=== PATIENT | female | born 1985 | race Caucasian/White ===

== ENCOUNTER 2021-11-25 07:35 | Inpatient (IN) ==
[2021-11-25] MEDS ORDERED: OXYTOCIN 30 UNITS/500 ML BAG IV PRN ×3 (07:45→13:16)
[2021-11-25 08:27] LABS: Hematocrit (blood only) 36.4 % (37-47); Hemoglobin 12.4 g/dL (12.0-16.0); Mean Corpuscular Hemoglobin 30.8 pg (25-34); Mean Corpuscular Hgb Conc 34.1 g/dL (32-36); Mean Corpuscular Volume 90.3 fL (80-100); Platelet Count 244 K/uL (130-400); RDW Coefficient of Variation 12.8 % (11.5-14.5); RDW Standard Deviation 42.4 fL (36.4-46.3); Red Blood Count 4.03 M/uL (4.2-5.4)
[2021-11-25] MEDS: LACTATED RINGER'S 1,000 ML IV PRN ×2 (09:05→10:49)
[2021-11-25] MEDS ORDERED: fentaNYL citrate 100 MCG/2 ML VIAL ONE (09:24)
[2021-11-25] MEDS ORDERED: ePHEDrine sulfate 50 MG/ML AMP ONE (09:24)
[2021-11-25] MEDS ORDERED: BUPIVACAINE 0.25% 30 ML VIAL ONE (09:24)
[2021-11-25] MEDS ORDERED: SODIUM CHLORIDE 0.9% INJ 10 ML VIAL ONE (09:24)
[2021-11-25] MEDS ORDERED: fentaNYL 2MCG/ML ROPIVACAINE 1.25MG/ML 100 ML BAG EPI ONE (09:25)
--- NOTE | 2021-11-25 09:51 | History & Physical Report ---
Date of Service November 25, 2021 Assessment & Plan (1) Post term over 40 weeks: Plan: 36 y/o G1 at 40 6/7 wga presents for IOL VSS Fetus cat 1 Labor - will start pit GBS neg epidural prn Admission and Anticipated Discharge Date Admission Date: November 25, 2021 History of Present Illness Chief Complaint: IOL Primary Care Provider: NO PCP 36 y/o G1 at 40 6/7 wga presents for IOL. +FM and ctx, denies LOF or VB. Had ludwig bulb placed last evening, fell out around 9pm. 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 Hx: G1 q29d cycles 05/2020 neg cyto, denies hx abnl Denies hx STIs Allergies Allergy/AdvReac Type Severity Reaction Status Date / Time No Known Allergies Allergy Mild Verified 11/25/21 07:57 Home Medications Medication Instructions Recorded Confirmed Type cetirizine 5 mg tablet 5 mg PO DAILY 11/24/21 11/25/21 History vit no.95-ferrous 1 tab PO DAILY 11/24/21 11/25/21 History fumarate 28 mg-folic acid 800 mcg tablet () acetaminophen 325 mg tablet 1,000 mg PO ONCE 11/25/21 11/25/21 History (Tylenol) Patient History Medical History History of varicella as a child Surgical History H/O wisdom tooth extraction Status post breast reduction Family History Mother Asthma Sister Asthma Father Dyslipidemia Denies family history of Ovarian cancer Breast cancer Colorectal cancer Social History Smoking Status: Never smoker Second Hand Exposure: No; Hx Alcohol Use: No Hx Substance Use: No Preferred Language: Brazilian Communication Ability: Effective Visual Impairment: No Limitations Hearing Ability: Normal 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 Required: No Beliefs That Will Affect Care: None marital status: marital status details: Eric Cristobal [phone] Current Living Situation: Spouse Current Living Situation Comment: Lives with spouse and dog current occupational status: employed 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 Other Information That Helps Us Care for You: No Feels Safe at Home: Yes Safety Concerns: Feels Safe At This Time Physical Exam Genitourinary: OB Exam Abdomen: + vertex and + estimated weight (7-8) Manual OB Exam: + cervical dilation (3-4), + cervical effacement 70% and + station -2 OB Exam Monitor Tracing: + external FHT monitor used (irreg), + external uterine monitor used and + category I (140/mod/+accel/-decel) Results & Data ([facility]) Vital Signs (Past 12 Hours) Vital Signs Temp Pulse Resp BP 11/25/21 08:00 98.2 F 58 L 18 120/82 11/25/21 07:52 58 L 120/82 11/25/21 07:51 98.2 F 18 Laboratory Results OB Labs: Blood Type O Positive 04/11/21 Antibody Screen NEGATIVE 04/11/21 Hemoglobin 12.7 g/dL (12.0-16.0) 08/30/21 Hematocrit 38.6 % (37-47) 08/30/21 Mean Corpuscular Volume 87.5 fL (80-100) 04/11/21 Platelet Count 330 K/uL (130-400) 04/11/21 Rubella IgG Antibody Immune (Immune) 04/11/21 Rapid Plasma Reagin Nonreactive (Nonreactive) 04/11/21 A Hepatitis B Surface Antigen Neg (Neg) 04/11/21 HIV (1&2) Ab and P24 Ag, 4th Gener Neg (Neg) 04/11/21 Glucose 1 Hour 50 gm Load 93 mg/dl (70-130) 08/30/21 OB Optional Labs: Chlamydia trachomatis RNA NOT DETECTED (NOT DETECTED) 04/11/21 Neisseria gonorrhoeae RNA NOT DETECTED (NOT DETECTED) 04/11/21 Labs Reviewed: declines cf/sma/genetics--akh declines afp--akh GBS neg Diagnostic Findings posterior plac Coding Level of Care Code None Diagnoses Post term over 40 weeks O48.0
[2021-11-25] MEDS ORDERED: ePHEDrine sulfate 50 MG/ML AMP IV PRN (10:08)
[2021-11-25] MEDS ORDERED: PROMETHAZINE HCL 25 MG in SODIUM CHLORIDE 0.9% 50 ML IV PRN (10:08)
[2021-11-25] MEDS ORDERED: ONDANSETRON INJ 2 MG/ML 2 ML VIAL IV PRN (10:08)
[2021-11-25] MEDS ORDERED: diphenhydrAMINE 50 MG/ML VIAL IV PRN (10:08)
[2021-11-25] MEDS ORDERED: NALOXONE HCL 1 MG in SODIUM CHLORIDE 0.9% 1000ML 1,000 ML IV PRN (10:08)
[2021-11-25] MEDS ORDERED: NALBUPHINE HCL INJ 10 MG/ML AMP IV PRN (10:08)
[2021-11-25] MEDS ORDERED: NALOXONE HCL 0.4 MG/1 ML VIAL/CARP IV PRN (10:08)
[2021-11-25] MEDS ORDERED: fentaNYL 2MCG/ML ROPIVACAINE 1.25MG/ML 100 ML BAG EPI PRN (10:08)
--- NOTE | 2021-11-25 10:08 | Anesthesiology Consultation ---
Date of Service November 25, 2021 Assessment & Plan Chart Review Chart Review: Patient NOT seen in Pre Admission Testing and Acceptable Risk for Labor Epidural Consults Requested none ASA ASA2 Proposed Anesthesia Anesthesia Type: Labor Epidural Risk / Benefits Reviewed With: PT / POA / Parent / Guardian, Accepts Plan and Informed Consent Obtained History Height/Weight Height: 5 ft 8 in Weight: 78.925 kg Allergies Allergy/AdvReac Type Severity Reaction Status Date / Time No Known Allergies Allergy Mild Verified 11/25/21 07:57 Medications Home Medications Medication Instructions Recorded Confirmed Last Taken cetirizine 5 mg tablet 5 mg PO DAILY 11/24/21 11/25/21 11/24/21 20:00 vit no.95-ferrous 1 tab PO DAILY 11/24/21 11/25/21 11/25/21 06:30 fumarate 28 mg-folic acid 800 mcg tablet () acetaminophen 325 mg tablet 1,000 mg PO ONCE 11/25/21 11/25/21 11/25/21 06:30 (Tylenol) Active Medications Generic Name Dose Route Start Last Admin Trade Name Freq PRN Reason Stop Dose Admin Lactated Ringer's 1,000 mls @ 125 mls/hr 11/25/21 07:45 11/25/21 09:05 Lr IV 11/27/21 07:44 999 mls/hr .Q8H PRN Administration L&D Protocol Protocol Past Medical History Medical History History of varicella as a child Exercise / Class Metabolic Activity II 4-5 Yardwork/Stairs/Walk up hill Past Family History Family History Mother Asthma Sister Asthma Father Dyslipidemia Denies family history of Ovarian cancer Breast cancer Colorectal cancer Past Surgical History Surgical History H/O wisdom tooth extraction Status post breast reduction Past Anesthesia History No Hx of Anesthesia Complications and No Family Hx of Anesthesia Complications History of PONV No Hx of PONV and No Hx of Motion Sickness Social History Smoking Status: Never smoker Hx Alcohol Use: No Hx Substance Use: No substance use type: does not use Physical Exam Vital Signs Last Vital Signs Temp 36.8 C 11/25/21 08:00 Pulse 53 L 11/25/21 10:03 Resp 18 11/25/21 08:00 BP 110/66 11/25/21 09:58 Pulse Ox 100 11/25/21 10:03 ENMT Mouth: no dentition abnormality Thyromental Distance: > or= 3.5 Finger Breadths Mallampati Class: II Neck normal visual inspection Respiratory normal respiratory effort Auscultation: lungs clear to auscultation bilaterally Cardiovascular Rate/Rhythm: regular rate and regular rhythm Psychiatric Orientation: alert Testing Laboratory Results 11/25/21 08:10
--- NOTE | 2021-11-25 12:53 | Delivery Summary ---
Vaginal Delivery Summary Date of Service November 25, 2021 Vaginal Delivery Summary and 2nd Degree LAC PREOPERATIVE DIAGNOSIS: 1. Single intrauterine at 40 6/7 wga 2. Term induction of labor 3. Advanced maternal age POSTOPERATIVE DIAGNOSIS: 1. Single intrauterine at 40 6/7 wga 2. Term induction of labor 3. Advanced maternal age 4. Delivered PROCEDURE: 1. Normal spontaneous vaginal delivery. SURGEON: Eusebia Jaime MD ANESTHESIA: Epidural. ESTIMATED BLOOD LOSS: 400 mL FLUIDS: Continuous LR. URINE OUTPUT: 200cc by straight cath following delivery. COMPLICATIONS: None. CONDITION: Stable. INDICATIONS: 36 y/o G1 at 40 6/7 wga presented last evening for ludwig bulb and it fell out few hours after placement. She presented this morning for continued induction and was found to be 3-4 cm with contractions becoming very uncomfortable. She received an epidural for pain control and pitocin was started. Approximately 3 hours later spontaneous rupture of membranes occurred and she felt pressure. She was found to be complete and desired to push. FINDINGS: A viable female infant, weight 3469g with Apgars of 8 and 9 at 1 and 5 minutes respectively. SPECIMEN: Cord blood OPERATIVE REPORT: The patient progressed to 10 cm, 100% effaced and +2 station, pushed over intact perineum over 2-3 contractions with anesthesia to deliver a viable female , weight and Apgars as above. Head of delivered in FELECIA position. Loose body cord was noted and delivered through. Body and shoulders were delivered without difficulty. was delivered to maternal abdomen and nursing staff. Delayed cord clamping was performed for 60 seconds. Cord was clamped and cut. Cord blood was obtained. Placenta delivered spontaneously intact with 3-vessel cord. IV oxytocin and fundal massage were given for excellent hemostasis. Vagina, cervix, perineum, and placenta were inspected. A left sulcal tear leading into the second degree laceration was noted and repaired using 3-0 vicryl in the usual fashion. An area of continued bleeding at the perineum was made hemostatic with 4-0 vicryl. There was excellent hemostasis. Majority of EBL was from tear. Umbilical cord was noted to have a true knot. Sponge and needle counts correct x2. No sponges were left behind. Mother and stable in immediate period. [facility] [place] Vaginal Delivery Charge Vaginal Delivery Codes: 07305 global code for the antepartum, delivery, and post- Delivery Type Details: and 2nd Degree LAC
[2021-11-25] MEDS ORDERED: DIPHTHERIA/TETANUS/PERTUSSIS 0.5 ML SYR/VIAL IM ONE (13:16)
[2021-11-25] MEDS ORDERED: bisacodyL 10 MG SUPP PR PRN (13:16)
[2021-11-25] MEDS ORDERED: BENZOCAINE 20% AER SPR 82.5 GM CAN EXT PRN (13:16)
[2021-11-25] MEDS ORDERED: HYDROCORTISONE ACETATE 25 MG SUPP PR PRN (13:16)
--- NOTE | 2021-11-25 13:39 | Anesthesia Procedure Note ---
Date of Service November 25, 2021 Anesthesia Post Epidural Note Vital Signs Vital Signs: Temp Pulse Resp BP Pulse Ox 36.5 C 59 L 18 108/70 99 11/25/21 10:50 11/25/21 13:29 11/25/21 10:50 11/25/21 13:29 11/25/21 12:48 Pain Intensity Left Lower Abdomen: Pain Intensity: 8 Notes Mental Status: alert / awake / arousable Nausea / Vomiting: adequately controlled Pain: adequately controlled Airway Patency, RR, SpO2: stable & adequate BP & HR: stable & adequate Hydration State: stable & adequate Neuraxial Anesthesia: was administered and sensory block is resolving Anesthetic Complications: no major complications apparent and Pt Satisfied with anesthetic care Epidural: Removed without complications and With tip intact
[2021-11-25] MEDS: IBUPROFEN 600 MG TAB PO PRN ×2 (17:28→21:36)
[2021-11-25] MEDS: ACETAMINOPHEN 325 MG TAB PO PRN (20:28)
[2021-11-25] MEDS: DOCUSATE SODIUM 100 MG CAP PO SCH (20:28)
[2021-11-26] MEDS: IBUPROFEN 600 MG TAB PO PRN ×2 (01:30→07:49)
[2021-11-26] MEDS: ACETAMINOPHEN 325 MG TAB PO PRN (03:59)
--- NOTE | 2021-11-26 06:19 | Obstetrical Progress Note ---
Date of Service <Mandicorrina Rosario DO - Last Filed: 11/26/21 06:53> November 26, 2021 Assessment & Plan <Mandi Rosario DO - Last Filed: 11/26/21 06:53> (1) Encounter for care and examination after delivery: 36 yo post op day1 from SCD as elderly primigravida, doing well. -Continue routine post care. -vital signs reviewed and WNL (Tmax 36.7) -Blood Type O+, GBS-, Rubella immune -Encourage ambulation, monitor and control pain with Motrin, tylenol PRN, resume regular diet, monitor lochia -encourage breast feeding -hemoglobin 12.4 Day #:: 1 <Eusebia Jaime MD - Last Filed: 11/26/21 07:17> (1) Encounter for care and examination after delivery: Subjective <Mandicorrina Rosario DO - Last Filed: 11/26/21 06:53> Ambulation: ambulating normally Voiding: no voiding problems Passing Gas:: Yes Diet Tolerance:: regular diet Lochia:: Moderate Feeding Type:: breast feeding Current Pain Level(1-10): 3 Review of Systems Denies fever, chills, sweats Denies shortness of breath, difficulty breathing, chest pain, palpitations, chest pressure. Denies breast pain. Denies dysuria. Denies headache or changes in vision. Physical Exam <Mandi AbrahamDO - Last Filed: 11/26/21 06:53> General: Alert, oriented. No acute distress. Cardiac: Regular rate and rhythm, no murmurs/rubs/gallops. Respiratory: Clear to auscultation bilaterally a/p, no wheezes/rales/rhonchi. No increased work of breathing. Symmetrical chest rise. No respiratory distress. Abdomen: Soft, nontender, nondistended. Bowel sounds present. Uterus: Uterine fundus firm, palpable at umbilicus. Lower Extremities: No lower extremity edema or swelling. No deep calf pain. George an's negative bilaterally.. Results & Data ([facility]) <Mandicorrina Rosario DO - Last Filed: 11/26/21 06:53> Vital Signs (Past 12 Hours) Vital Signs Temp Pulse Resp BP Pulse Ox 11/26/21 04:00 36.7 C 55 L 16 112/73 98 04/15/22 22:45 36.5 C 58 L 17 111/67 96 11/25/21 20:15 36.6 C 57 L 16 122/80 97 <Eusebia Jaime MD - Last Filed: 11/26/21 07:17> Co-Signing Physician Notes Resident Physician Supervision Note: I interviewed and examined the patient. Discussed with Dr. Rosario and agree with findings and plan as documented in the note. Any exceptions or clarifications are listed here: PP1 s/p , doing well. VSS, exam benign and wnl. Interested in d/c home today pending peds ok, d/c instructions reviewed. Stable for d/c from OB standpoint if desires Documented By: Eusebia Jaime MD Resident Activity Tracking <Mandi Rosario DO - Last Filed: 11/26/21 06:53> Resident Involvement: Resident Care Provided Care Provided: Adult Hospital Medicine and OB Delivery
[2021-11-26] MEDS: DOCUSATE SODIUM 100 MG CAP PO SCH (07:49)
[2021-11-26] MEDS ORDERED: PRENATAL VITAMIN 1 TAB PO SCH (08:00)
[2021-11-26] MEDS ORDERED: bisacodyL 5 MG TABEC PO SCH (20:00)
== END 2021-11-26 14:35 | disposition home or self-care (01) | DRG 807 ==
LOC: 4S1 07:35 → 4E2 15:53
DX: O70.1 Second degree perineal laceration during delivery; Z37.0 Single live birth; O69.2XX0 Labor and delivery complicated by other cord entanglement, with compression, not applicable or unspecified; O48.0 Post-term pregnancy; Z86.19 Personal history of other infectious and parasitic diseases; Z3A.40 40 weeks gestation of pregnancy